=== PATIENT | female | born 2005 | race Two or more races ===

== ENCOUNTER 2024-08-05 22:53 | Emergency (ER) | payer MEDICAID, SELFPAY ==
[2024-08-05 22:54] VITALS: BMI 36.6
[2024-08-05 23:10] VITALS: BP 116/76; PULSE 75; RESP 18; TEMP 36.6; O2SAT 95
--- NOTE | 2024-08-05 23:25 | XR_ITS ---
Examination: Pelvic ultrasound, transabdominal, complete Technique: Transabdominal ultrasound of the pelvis performed using grayscale imaging Date and time of exam: August 06, 2024 0027 hrs. 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
--- NOTE | 2024-08-05 23:26 | PD.EDRME ---
Rapid Medical Screening Exam RME Arrival date/time: 08/05/24 22:53 19-year-old female past medical history of right oophorectomy presents emergency department complaining of right lower quadrant abdominal pain and dysuria for 2 days. Chief Complaint: Urogenital-Female Time Seen by Provider: 08/05/24 23:15 Vital signs: Vital Signs Temperature 98 F 08/05/24 23:10 Pulse Rate 75 08/05/24 23:10 Respiratory Rate 18 08/05/24 23:10 Blood Pressure 116/76 08/05/24 23:10 Pulse Oximetry (%) 95 08/05/24 23:10 Oxygen Delivery Method Room Air 08/05/24 23:10 Vital signs reviewed by provider: Yes
[2024-08-06] LABS: Collection Type, Urine Clean Catch
[2024-08-06 00:07] LABS: Bilirubin,Urine Negative (Negative); Blood,Urine Negative (Negative); Clarity,Urine Clear (Clear/Hazy); Color,Urine Yellow (Lt Yel-Yel); Culture Indicated,Urine Not Indicated; Glucose, Urine Negative (Negative); Ketones,Urine Negative (Negative); Leukocyte Esterase,Urine Negative (Negative); Nitrite,Urine Negative (Negative); Protein,Urine Negative (Neg - Trace); RBC,Urine < 1 /hpf (0-3); Specific Gravity,Urine 1.023 (1.001-1.035); Squamous Epithelial Cell,Urine 2 /hpf (0-5); Urobilinogen,Urine Negative mg/dL (0.0-1.0); WBC,Urine < 1 /hpf (0-5)
[2024-08-06 00:28] LABS: Basophils % (Auto) 0 % (0-2.5); Eosinophils # (Auto) 0.1 Thou/mm3 (0.0-0.5); Eosinophils % (Auto) 1 % (0-10); Hematocrit 36.4 % (36.0-46.0); Hemoglobin 11.6 g/dL (12.0-16.0); Immature Granulocytes % (Auto) 0 % (0-0); Immature Granulocytes Auto 0.03 Thou/mm3 (0.00-0.00); Lymphocytes # (Auto) 4.7 Thou/mm3 (1.0-4.8); Lymphocytes % (Auto) 41 % (10-50); Mean Corpuscular HGB Conc 31.9 g/dl (31.0-37.0); Mean Corpuscular Hemoglobin 25.6 pg (25.0-35.0); Mean Corpuscular Volume 80 fL (80-100); Monocytes # (Auto) 0.7 Thou/mm3 (0.0-0.8); Monocytes % (Auto) 6 % (0-12); Neutrophils % (Auto) 51 % (37-80); Nucleated Red Blood Cell % 0 /100 WBC (0); Platelet Count 258 Thou/mm3 (140-440); RDW Standard Deviation 42.5 fL (36.4-46.3); Red Blood Count 4.54 Miln/mm3 (4.00-5.20); White Blood Count 11.6 Thou/mm3 (4.5-11.0)
[2024-08-06 01:08] LABS: Alanine Aminotransferase 11 U/L (10-49); Albumin, Serum 4.7 gm/dL (3.5-5.0); Albumin/Globulin Ratio 1.7 (1.2-2.2); Alkaline Phosphatase 84 U/L (46-116); Anion Gap 7 (7-16); Aspartate Amino Transferase 14 U/L (0-34); BUN/Creatinine Ratio 19 Ratio (12-20); Bilirubin,Total 0.3 mg/dL (0.3-1.2); Blood Urea Nitrogen 13 mg/dL (9-23); Carbon Dioxide 26.4 mMol/L (20.0-31.0); Chloride 105 mMol/L (98-107); Creatinine (Component) 0.7 mg/dL (0.6-1.3); Globulin 2.8 gm/dL (2.3-3.5); Glucose 90 mg/dL (74-106); Lipase 28 U/L (12-53); Osmolality,Calculated 275 (275-295); Potassium 4.2 mMol/L (3.4-5.1); Sodium 138 mMol/L (136-145); Total Protein 7.5 gm/dL (5.7-8.2); eGFR > 60 See Note
[2024-08-06 01:29] LABS: HCG,Qualitative Serum Negative
--- NOTE | 2024-08-06 02:13 | PRELIM_ITS ---
Pelvic ultrasound (transabdominal) with doppler and wave doppler spectral analysis. August 06, 2024 at 0027 hours Clinical history: Right pelvic pain. Technique: Real-time, grayscale, transabdominal pelvic ultrasound was performed using Duplex scanning including arterial inflow, venous outflow, color and spectral Doppler. Comparison: None available at the time of this report. Findings: The uterus is normal in size measuring 8.3 x 4.1 x 6.1 cm. The endometrium is unremarkable and measures 1.1 cm. The right ovary measures 3.3 x 2.4 x 2.3 cm and is unremarkable. The left ovary measures 3.5 x 2.2 x 2.7 cm and is unremarkable. Both ovaries demonstrate color flow and spectral waveforms on Doppler evaluation. There is no adnexal mass. There is a small amount of free fluid on the submitted images. Impression: Small amount of free fluid in the pelvis, probably functional. No evidence of ovarian torsion. Report Electronically Signed By: Walt Lewis 08/06/2024 2:13:14 AM [EST]
--- NOTE | 2024-08-06 02:26 | PD.EDABDPN ---
ED Abdominal Pain RME/HPI General Chief Complaint: Urogenital-Female Stated complaint: RLQ PAIN, DYSURIA Time seen by provider: 08/05/24 23:15 Arrival date/time: 08/05/24 22:53 19-year-old female past medical history of right oophorectomy presents emergency department complaining of right lower quadrant abdominal pain and dysuria for 2 days. Patient reports pain is right pelvic pain that radiates down towards the pelvis. Patient denies any fever, chills, poor appetite, vomiting, or any other associated symptom. Source: patient Mode of arrival: ambulatory Limitations: no limitations RME / HPI RME / HPI narrative: 08/05/24 22:53 19-year-old female past medical history of right oophorectomy presents emergency department complaining of right lower quadrant abdominal pain and dysuria for 2 days. Related Data Home Medications ?Medication ?Instructions ?Recorded ?Confirmed vit no.95-ferrous 1 tab PO DAILY 04/21/23 08/16/23 fumarate 28 mg-folic acid 800 mcg tablet () Previous Rx's ?Medication ?Instructions ?Recorded ibuprofen 800 mg tablet 800 mg PO TID PRN pain #30 tabs 12/28/23 loperamide 2 mg capsule (Imodium 2 mg PO Q6H PRN loose stool #14 12/28/23 A-D) caps ondansetron 4 mg disintegrating 4 mg PO Q8H PRN nausea and 12/28/23 tablet vomiting #10 tabs ibuprofen 800 mg tablet 800 mg PO TID PRN pain #30 tabs 03/18/24 ibuprofen 600 mg tablet 600 mg PO Q8H PRN pain #20 tabs 08/06/24 Allergies Allergy/AdvReac Type Severity Reaction Status Date / Time orange Allergy Severe Swelling Verified 08/05/24 22:56 of Lip/Tongue/Throat Review of Systems Review of Systems Systems Reviewed: All systems reviewed, normal except as documented Constitutional Constitutional: Reports system reviewed and no additional complaints, except as documented, Denies body ache(s), Denies chills and Denies fever(s) Eyes Eyes: Reports system reviewed and no additional complaints, except as documented and Denies change in vision ENT Ears, Nose, Mouth, and Throat: Reports system reviewed and no additional complaints, except as documented, Denies disequilibrium, Denies dizziness, Denies sore throat and Denies vertigo Cardiovascular Cardiovascular: Reports system reviewed and no additional complaints, except as documented, Denies chest pain and Denies dyspnea Respiratory Respiratory: Reports system reviewed and no additional complaints, except as documented, Denies chest congestion, Denies cough and Denies dyspnea Gastrointestinal Gastrointestinal: Reports system reviewed and no additional complaints, except as documented, Reports abdominal pain, Denies nausea and Denies vomiting Genitourinary Genitourinary: Reports pelvic pain and Reports other (Dysuria) Musculoskeletal Musculoskeletal: Reports system reviewed and no additional complaints, except as documented, Denies abnormal gait and Denies arthralgias Integumentary/Breasts Skin/Breast: Reports system reviewed and no additional complaints, except as documented, Denies erythema, Denies rash and Denies wounds Neurologic Neurologic: Reports system reviewed and no additional complaints, except as documented, Denies abnormal gait, Denies disequilibrium, Denies dizziness and Denies vertigo Past Medical History Past Medical History NEUROLOGIC: Negative Neurological Disorders, Seizures or Head Trauma CARDIAC: Negative Cardiac Disorders or Congestive Heart Failure RESPIRATORY: Negative Chronic Obstructive Pulmonary Disease (COPD) or Asthma GASTROINTESTINAL: Negative Gastrointestinal Disorders GENITOURINARY: Negative Genitourinary Disorders or Renal Disease REPRODUCTIVE: Negative Genital Herpes, Gonorrhea, Pelvic Inflammatory Disease or Syphilis MUSCULOSKELETAL: Negative Musculoskeletal Disorders ENT: Negative Head Trauma ENDOCRINE: Negative Endocrine Disorders, Diabetes Mellitus Type 1 or Diabetes Mellitus Type 2 HEMATOLOGIC: Negative Blood Disorders or Sickle Cell Disease PSYCHO/SOCIAL: Negative Recreational Drug Use, Depression or Anxiety OTHER HISTORY: Negative Hospitalization, Autoimmune Disease, Falls, Blood Transfusions, Blood Transfusion Reaction, Anesthesia Reactions (NA), MRSA, Chicken Pox or Cancer Family History FAMILY HISTORY: Positive Family Surgery; Negative Family Psychiatric Problems, Family Respiratory Disorders, Family Cardiac Disorders, Family Gastrointestinal Problems, Family Cancer or Family Anesthesia Reaction Surgical History SURGICAL: Negative Abdominal Surgery, Joint Replacement, Mastectomy or Section Social History SMOKING STATUS: Never smoker SUBSTANCE USE: does not use ED Exam General Limitations: Present no limitations General appearance: Present alert and in no apparent distress Head Head exam: Present atraumatic Eye Eye exam: Present normal appearance, PERRL and EOMI ENT ENT exam: Present normal exam, normal oropharynx and mucous membranes moist Neck Neck exam: Present normal inspection, full ROM and trachea midline Chest Chest inspection: Present normal inspection and symmetric chest wall rise Respiratory Respiratory exam: Present normal lung sounds bilaterally Cardiovascular Cardiovascular exam: Present regular rate, normal rhythm and normal heart sounds Abdominal Exam Abdominal exam: Present soft and normal bowel sounds; Absent distention, tenderness, guarding, Bolton's sign or tenderness at McBurney's Point Extremities Exam Extremities exam: Present normal inspection and full ROM Back Exam Back exam: Present normal inspection and full ROM Neurological Exam Neurological exam: Present alert, oriented X3 and CN II-XII intact Psychiatric Psychiatric exam: Present normal affect and normal mood Skin Skin exam: Present warm, dry, intact and normal color Course Quality Measures none Orders Category Date Time Status US pelvic complete Stat Exams 08/05/24 23:25 Taken CBC Stat Lab 08/05/24 23:25 Completed CMP [Comprehensive Metabolic Panel] Stat Lab 08/05/24 23:25 Completed CRP [C-Reactive Protein] Stat Lab 08/05/24 23:25 Completed HCG,Qualitative Serum Stat Lab 08/05/24 23:25 Completed Lipase Stat Lab 08/05/24 23:25 Completed Urinalysis, C/S if Indicated Stat Lab 08/05/24 23:49 Completed Ketorolac Inj [Toradol Inj] Med 08/06/24 01:54 Discontinued 30 mg IM X1 ONE Vital Signs Vital signs: Vital Signs Temperature 98 F 08/05/24 23:10 Pulse Rate 75 08/05/24 23:10 Respiratory Rate 18 08/05/24 23:10 Blood Pressure 116/76 08/05/24 23:10 Pulse Oximetry (%) 95 08/05/24 23:10 Oxygen Delivery Method Room Air 08/05/24 23:10 95% room air within normal limits Abdominal Pain MDM MDM Narrative MDM Narrative:: 19-year-old female past medical history of right oophorectomy presents emergency department complaining of right lower quadrant abdominal pain and dysuria for 2 days. Patient reports pain is right pelvic pain that radiates down towards the pelvis. Patient denies any fever, chills, poor appetite, vomiting, or any other associated symptom. Abdomen soft with no tenderness at McBurney's point. CBC mild leukocytosis 11.6. CMP was unremarkable for any elevated LFTs. CRP mildly elevated 0.0. Urinalysis was unremarkable. Ultrasound pelvis was also unremarkable. Patient reports pain had subsided and improved. Patient stable for discharge. Patient gave strict return instructions to emergency department for any worsening right lower quadrant pain, fever, chills, vomiting, or as needed. Instructed to follow-up with primary care provider upon discharge. Patient data External records reviewed:: [facility] previous records Clinical information provided by:: patient Social determinants that could affect healthcare access:: none Patient has the following chronic illnesses:: None How is presenting disease/condition affected by chronic disease/condition?: no chronic disease Evaluation data The following diagnostics were reviewed and interpreted by me:: lab results and radiology exam(s) Lab and/or radiology exams considered but not ordered:: Ordered Interpretation Summary: Interpreted by me Medications / Prescriptions Medications or Prescriptions considered but not ordered:: Ordered Medication administrations:: Medication Administration History Discontinued Medications Ketorolac Tromethamine (Ketorolac Inj 60 Mg/2 Ml Vial) 30 mg IM X1 ONE Stop: 08/06/24 01:55 Last Admin: 08/06/24 02:21 Dose: Not Given Documented By: LORENZO Non-Admin Reason: Patient Refused Given Consultations Consultation(s) initiated? (list below): No Diagnosis Differential diagnosis abdominal pain: abdominal pain, acute appendicitis, calculus of kidney, constipation, diverticulitis, endometriosis, gastroenteritis, pancreatitis and small bowel obstruction Most likely diagnosis given after review of the tests above:: Abdominal pain Admission Indicated Admission indicated?: not indicated Admission Request Was there a request for admission?: No Disposition Plan Disposition Plan: Discharge Discharge Attestation Discharge Attestation: The patient and all family members were given an opportunity to ask questions and understood the discharge instructions. Discharge instructions specifically effects, indications for sooner follow up or return to the emergency department, and the expected course of current diagnosis. Patient condition: Stable Discharge Plan Plan Patient Disposition: HOME (Self Care) Disposition Comment: Stable Prescriptions/Referrals Prescriptions/Med Rec: New ibuprofen 600 mg tablet 600 mg PO Q8H PRN (Reason: pain) Qty: 20 0RF No Action PNV cmb#95-ferrous fumarate-FA [] 28 mg iron- 800 mcg tablet 1 tab PO DAILY Patient Comments: TAKE 1 TABLET BY MOUTH EVERY DAY FOR 90 DAYS loperamide [Imodium A-D] 2 mg capsule 2 mg PO Q6H PRN (Reason: loose stool) Qty: 14 0RF ibuprofen 800 mg tablet 800 mg PO TID PRN (Reason: pain) Qty: 30 0RF ondansetron 4 mg tablet,disintegrating 4 mg PO Q8H PRN (Reason: nausea and vomiting) Qty: 10 0RF ibuprofen 800 mg tablet 800 mg PO TID PRN (Reason: pain) Qty: 30 0RF Referrals: Minesh Dye MD [Primary Care Provider] - In 1 week Problem List Clinical Impression: Abdominal pain Patient/Caregiver Discharge Instructions Discharge Activity: activity as tolerated Education Materials: Abdominal Pain, ED Abdominal Pain Unkn Cause Fem Additional Instructions: Drink plenty of fluids and stay hydrated. Take Tylenol or ibuprofen as needed for pain. Follow-up with primary care provider in 2 to 3 days. Return immediately to emergency department for any worsening pain to right lower quadrant, or appetite, fever, vomiting, worsening symptoms, or as needed. Print Language: Setswana Stand Alone Forms: Jeannine Award Info., Patient Portal Info Letter PA/ELECTRONIC GAME DEVELOPER Supervising Physician PA/ELECTRONIC GAME DEVELOPER Supervising Physician: Dr. Dao
== END 2024-08-06 02:49 | disposition home or self-care (01) ==
PROVIDERS: Emergency Provider Emergency Medicine; PCP Family Medicine
DX: R10.31 Right lower quadrant pain (principal); R10.2 Pelvic and perineal pain; R30.0 Dysuria; D72.829 Elevated white blood cell count, unspecified
CPT/HCPCS: 36415; 76856; 80053; 81001; 83690; 84703; 85025; 86140; 99284

== ENCOUNTER 2024-09-09 21:00 | Emergency (ER) | payer MEDICAID, SELFPAY ==
[2024-09-09 21:01] VITALS: BMI 35.9
[2024-09-09 21:27] VITALS: BP 126/79; PULSE 120; RESP 18; TEMP 37.7; O2SAT 98
--- NOTE | 2024-09-09 21:48 | PD.EDURI ---
Upper Respiratory Inf. RME/HPI General Chief Complaint: Flu Like Symptoms Stated Complaint: FEVER,RUNNY NOSE Time Seen by Provider: 09/09/24 21:05 Source: patient, RN notes reviewed and old records reviewed Arrival date/time: 09/09/24 21:00 Mode of arrival: ambulatory Limitations: no limitations RME / HPI RME / HPI Narrative: 19yof presents to ED for 2-day history of fever, congestion and cough. Multiple family members currently have similar symptoms. Patient c/o headache, body aches, nausea and chest wall pain with cough. No shortness of breath, vomiting, dizziness or syncope reported. Tylenol taken at 1700 with mild relief. Related Data Home Medications ?Medication ?Instructions ?Recorded ?Confirmed vit no.95-ferrous 1 tab PO DAILY 04/21/23 08/16/23 fumarate 28 mg-folic acid 800 mcg tablet () Previous Rx's ?Medication ?Instructions ?Recorded ibuprofen 800 mg tablet 800 mg PO TID PRN pain #30 tabs 12/28/23 loperamide 2 mg capsule (Imodium 2 mg PO Q6H PRN loose stool #14 12/28/23 A-D) caps ondansetron 4 mg disintegrating 4 mg PO Q8H PRN nausea and 12/28/23 tablet vomiting #10 tabs ibuprofen 800 mg tablet 800 mg PO TID PRN pain #30 tabs 03/18/24 ibuprofen 600 mg tablet 600 mg PO Q8H PRN pain #20 tabs 08/06/24 dextromethorphan-guaifenesin ER 60 1 tab PO Q12H PRN congestion/cough 09/09/24 mg-1,200 mg tab,extend #20 tabs release,12hr (Mucinex DM) ibuprofen 600 mg tablet 600 mg PO Q6H PRN fever or pain 09/09/24 #30 tabs ondansetron 4 mg disintegrating 4 mg PO Q6H PRN nausea and 09/09/24 tablet vomiting #10 tabs Allergies Allergy/AdvReac Type Severity Reaction Status Date / Time orange Allergy Severe Swelling Verified 08/05/24 22:56 of Lip/Tongue/Throat Review of Systems Review of Systems Systems Reviewed: All systems reviewed, normal except as documented Constitutional Constitutional: Reports body ache(s), Reports chills, Reports fever(s) and Reports headache(s) ENT Ears, Nose, Mouth, and Throat: Denies dizziness, Reports headache(s) and Reports nasal congestion Cardiovascular Cardiovascular: Denies dyspnea and Denies syncope Comments: Reports chest wall pain with cough Respiratory Respiratory: Reports cough and Denies dyspnea Gastrointestinal Gastrointestinal: Denies abdominal pain, Reports nausea and Denies vomiting Musculoskeletal Musculoskeletal: Reports myalgias Neurologic Neurologic: Denies dizziness, Reports headache(s) and Denies syncope Past Medical History Past Medical History GASTROINTESTINAL: Positive Obesity Surgical History OTHER SURGICAL HX: ovarian cystectomy Social History SMOKING STATUS: Never smoker SUBSTANCE USE: does not use ALCOHOL: Never ED Exam General Limitations: Present no limitations General appearance: Present alert and in no apparent distress Head Head exam: Present atraumatic and normocephalic Eye Eye exam: Present normal appearance, PERRL and EOMI ENT ENT exam: Present normal oropharynx, mucous membranes moist, TM's normal bilaterally and other (Mild UAC) Neck Neck exam: Present normal inspection and full ROM; Absent tenderness or meningismus Chest Chest inspection: Present symmetric chest wall rise and tenderness (Reproducible chest wall TTP) Respiratory Respiratory exam: Present normal lung sounds bilaterally and other (No wheezing, rales or rhonchi); Absent respiratory distress Cardiovascular Cardiovascular exam: Present normal rhythm and tachycardia Extremities Exam Extremities exam: Present normal inspection and full ROM Neurological Exam Neurological exam: Present alert and oriented X3 Psychiatric Psychiatric exam: Present normal affect and normal mood Skin Skin exam: Present warm, dry, intact and normal color Course Quality Measures none Orders Category Date Time Status Bedside COVID-19 Antigen Test NOW Care 09/09/24 21:47 Completed Bedside Influenza A&B Antigen Test NOW Care 09/09/24 21:48 Completed CXR2 [XR chest 2V] Stat Exams 09/09/24 23:04 Completed Ibuprofen Tab [Motrin Tab] Med 09/09/24 21:47 Discontinued 600 mg PO X1 ONE Ondansetron Odt [Zofran Odt] Med 09/09/24 21:47 Discontinued 4 mg PO X1 ONE Vital Signs Vital signs: Vital Signs Temperature 99.9 F 09/09/24 21:27 Pulse Rate 120 H 09/09/24 21:27 Respiratory Rate 18 09/09/24 21:27 Blood Pressure 126/79 09/09/24 21:27 Pulse Oximetry (%) 98 09/09/24 21:27 Oxygen Delivery Method Room Air 09/09/24 21:27 Upper Respiratory Infection MDM Narrative MDM Narrative:: 19yof presents to ED for 2-day history of fever, congestion and cough. Multiple family members currently have similar symptoms. Patient c/o headache, body aches, nausea and chest wall pain with cough. No shortness of breath, vomiting, dizziness or syncope reported. Tylenol taken at 1700 with mild relief. Patient is well-appearing, afebrile, vitals are stable. No evidence of respiratory distress or hypoxia. Suspect viral etiology of symptoms. Encouraged rest, fluids, symptomatic treatment, fever mgmt prn. Stable for dc, RTED precautions given. Patient data External records reviewed:: [facility] previous records (08/06/2024 ED visit for abdominal pain) Clinical information provided by:: patient Social determinants that could affect healthcare access:: other (specify) (Poor access to healthcare) Patient has the following chronic illnesses:: Obesity How is presenting disease/condition affected by chronic disease/condition?: exacerbated by Evaluation data The following diagnostics were reviewed and interpreted by me:: lab results Lab and/or radiology exams considered but not ordered:: none Interpretation Summary: Covid negative Flu negative CXR: no pneumonia per my read Medications / Prescriptions Medications or Prescriptions considered but not ordered:: No antibiotics or antivirals recommended at this time Medication administrations:: Medication Administration History Discontinued Medications Ibuprofen (Ibuprofen Tab 600 Mg Tablet) 600 mg PO X1 ONE Stop: 09/09/24 21:48 Last Admin: 09/09/24 22:33 Dose: 600 mg Documented By: ELDER Ondansetron HCl (Ondansetron Odt 4 Mg Tabrap) 4 mg PO X1 ONE; Protocol Stop: 09/09/24 21:48 Last Admin: 09/09/24 22:33 Dose: 4 mg Documented By: ELDER Above medications administered in ED Consultations Consultation(s) initiated? (list below): No Diagnosis Upper Respiratory Differential Diagnosis: other (URI, COVID, flu, viral illness, bronchitis, pneumonia) Most likely diagnosis given after review of the tests above:: URI Admission Indicated Admission indicated?: not indicated Admission Request Was there a request for admission?: No Disposition Plan Disposition Plan: Discharge Discharge Attestation Discharge Attestation: The patient and all family members were given an opportunity to ask questions and understood the discharge instructions. Discharge instructions specifically effects, indications for sooner follow up or return to the emergency department, and the expected course of current diagnosis. Patient condition: Stable Discharge Plan Plan Patient Disposition: HOME (Self Care) Patient condition on transfer: Stable Prescriptions/Referrals Prescriptions/Med Rec: New ibuprofen 600 mg tablet 600 mg PO Q6H PRN (Reason: fever or pain) Qty: 30 0RF ondansetron 4 mg tablet,disintegrating 4 mg PO Q6H PRN (Reason: nausea and vomiting) Qty: 10 0RF dextromethorphan-guaifenesin [Mucinex DM] 60-1,200 mg tablet extended release 12 hr 1 tab PO Q12H PRN (Reason: congestion/cough) Qty: 20 0RF No Action ibuprofen 600 mg tablet 600 mg PO Q8H PRN (Reason: pain) Qty: 20 0RF PNV cmb#95-ferrous fumarate-FA [] 28 mg iron- 800 mcg tablet 1 tab PO DAILY Patient Comments: TAKE 1 TABLET BY MOUTH EVERY DAY FOR 90 DAYS loperamide [Imodium A-D] 2 mg capsule 2 mg PO Q6H PRN (Reason: loose stool) Qty: 14 0RF ibuprofen 800 mg tablet 800 mg PO TID PRN (Reason: pain) Qty: 30 0RF ondansetron 4 mg tablet,disintegrating 4 mg PO Q8H PRN (Reason: nausea and vomiting) Qty: 10 0RF ibuprofen 800 mg tablet 800 mg PO TID PRN (Reason: pain) Qty: 30 0RF Referrals: No Primary/Family,Physician [Primary Care Provider] - In 1 week Problem List Clinical Impression: URI (upper respiratory infection), Viral illness, Cough Patient/Caregiver Discharge Instructions Education Materials: ED URI, Viral, No Abx (Adult) Print Language: Singaporean Stand Alone Forms: Jeannine Award Info., Work/School Release, Patient Portal Info Letter PA/VOLUNTEER SERVICES DIRECTOR Supervising Physician PA/VOLUNTEER SERVICES DIRECTOR Supervising Physician: Cathie
[2024-09-09] MEDS: ONDANSETRON ODT 4 MG TABRAP PO (22:33)
[2024-09-09] MEDS: IBUPROFEN TAB 600 MG TABLET PO (22:33)
--- NOTE | 2024-09-09 23:04 | XR_ITS ---
Examination: PA lateral chest 2 views TECHNIQUE: Upright PA and lateral chest 2 views Exam date and time: September 09, 2024 1006 hours INDICATIONS: Coughing fever beginning 2 days ago. FINDINGS: Normal heart size. Lungs are clear. The osseous structures are intact. IMPRESSION: No active disease
[2024-09-09 23:35] VITALS: BP 121/82; PULSE 95; RESP 20; TEMP 37.1; O2SAT 98
[2024-09-09 23:39] VITALS: RESP 18
== END 2024-09-09 23:39 | disposition home or self-care (01) ==
PROVIDERS: Emergency Provider Emergency Medicine
DX: J06.9 Acute upper respiratory infection, unspecified (principal)
CPT/HCPCS: 71046; 87400; 87811; 99283; Q0162; A9270

== ENCOUNTER 2024-12-07 14:39 | Emergency (ER) | payer MEDICAID, SELFPAY ==
[2024-12-07 15:17] VITALS: BP 116/75; PULSE 86; RESP 16; TEMP 36.7; O2SAT 99; BMI 35.9
[2024-12-07 15:29] LABS: Collection Type, Urine Clean Catch
--- NOTE | 2024-12-07 15:32 | EDNOTE_ITS ---
ED Female Urogenital RME/HPI General Chief complaint: Urogenital-Female Stated complaint: Painful urination X 2 days, right lower back Time Seen by Provider: 12/07/24 15:08 Arrival date/time: 12/07/24 14:39 This is a 19-year-old female that comes in with complaints of pain with urination for the past few days. Patient also complains of some lower back pain. Patient denies any past medical history. Patient states that she just finished her cycle. Patient patient denies fever chills nausea vomiting diarrhe a Related Data Home Medications ?Medication ?Instructions ?Recorded ?Confirmed vit no.95-ferrous 1 tab PO DAILY 04/21/23 fumarate 28 mg-folic acid 800 mcg tablet () Previous Rx's ?Medication ?Instructions ?Recorded ibuprofen 800 mg tablet 800 mg PO TID PRN pain #30 t abs 12/28/23 loperamide 2 mg capsule (Imodium 2 mg PO Q6H PRN loose stool #14 12/28/23 A-D) caps ondansetron 4 mg disintegrating 4 mg PO Q8H PRN nausea and 12/28/23 tablet vomiting #10 tabs ibuprofen 800 mg tablet 800 mg PO TID PRN pain #30 t abs 03/18/24 ibuprofen 600 mg tablet 600 mg PO Q8H PRN pain #20 t abs 08/06/24 dextromethorphan-guaifenesin ER 60 1 tab PO Q12H PRN c ongestion/cough 09/09/24 mg-1,200 mg tab,extend #20 tabs release,12hr (Mucinex DM) ibuprofen 600 mg tablet 600 mg PO Q6H PRN fever or p ain 09/09/24 #30 tabs ondansetron 4 mg disintegrating 4 mg PO Q6H PRN nausea and 09/09/24 tablet vomiting #10 tabs ibuprofen 800 mg tablet 800 mg PO Q6H PRN pain #10 t abs 12/07/24 Allergies Allergy/AdvReac Type Severity Reaction Status Date / Time orange Allergy Severe Swelling Verified 12/07/24 14:44 of Lip/Tongue/Throat Review of Systems Review of Systems Systems Reviewed: All systems reviewed, normal except as documented Past Medical History Past Medical History GASTROINTESTINAL: Positive Obesity Surgical History OTHER SURGICAL HX: ovarian cystectomy Social History SMOKING STATUS: Never smoker SUBSTANCE USE: does not use ALCOHOL: Never ED Exam Narrative Physical exam: VITAL SIGNS: Reviewed. GENERAL APPEARANCE: Alert and interactive, follows commands, no acute distress HEAD AND FACE: Non-traumatic. ENT: PERRL, conjuctiva pink and clear, eyelid no trauma, Mucous membrane moist. NECK: Supple, nontender, no nuchal rigidity. CHEST: No tenderness, no crepitus, no paradoxical movement, no retractions. LUNGS: breathing even and unlabored HEART: Regular rate, cap refill less than 2 seconds ABDOMEN: Soft, nondistended, no guarding, nontender, no cva tenderness NEUROLOGICAL: Gross motor function intact sensory function intact, Appropriate for age. MUSCULOSKELETAL: low back nontender, full range of motion. EXTREMITIES: No redness no swelling no skin breakdown on bilateral foot and leg. Distal neurovascular status intact bilateral foot SKIN: Color pink, dry, no rash, no lacerations, no abrasions, no contusions. Course Quality Measures none Orders Category Date Time Status Urinalysis, C/S if Indicated Stat Lab 12/07/24 15:18 Completed Urine Culture Stat Lab 12/07/24 15:18 Completed Ibuprofen Tab [Motrin Tab] Med 12/07/24 16:59 Discontinued 800 mg PO X1 ONE cefTRIAXone [Rocephin] 1,000 mg Med 12/07/24 16:59 Discontinued Lidocaine 1% 20 ml [Xylocaine 1% 20 ML] 2.1 ml IM X1 Vital Signs Vital signs: Vital Signs Temperature 98.1 F 12/07/24 15:17 Pulse Rate 86 12/07/24 15:17 Respiratory Rate 16 12/07/24 15:17 Blood Pressure 116/75 12/07/24 15:17 Pulse Oximetry (%) 99 12/07/24 15:17 Oxygen Delivery Method Room Air 12/07/24 15:17 Urogenital - Female MDM Narrative MDM Narrative:: Patient positive for UTI. Will treat with Rocephin. Patient told to follow-up with primary provider in 1 to 2 days. Come back to the emergency room if symptoms change or worsen Patient data External records reviewed:: [facility] previous records Clinical information provided by:: patient Social determinants that could affect healthcare access:: none Patient has the following chronic illnesses:: none How is presenting disease/condition affected by chronic disease/condition?: no chronic disease Evaluation data The following diagnostics were reviewed and interpreted by me:: lab results Lab and/or radiology exams considered but not ordered:: none Interpretation Summary: see note Medications / Prescriptions Medications or Prescriptions considered but not ordered:: none Medication administrations:: Medication Administration History Discontinued Medications Ceftriaxone Sodium 1,000 mg/ (Lidocaine HCl 2.1 ml) 0 mg IM X1 ONE Stop: 12/07/24 17:00 Last Admin: 12/07/24 17:17 Dose: 1,000 mg Documented By: LORENZO Comments: 2.1 ml Ibuprofen (Ibuprofen Tab 400 Mg Tablet) 800 mg PO X1 ONE Stop: 12/07/24 17:00 Last Admin: 12/07/24 17:16 Dose: 800 mg Documented By: LORENZO see mar Consultations Consultation(s) initiated? (list below): No Diagnosis Urogenital Female Differential Diagnosis: urinary tract infection, bacterial vaginosis and other (kidney stone ) Most likely diagnosis given after review of the tests above:: uti Admission Indicated Admission indicated?: not indicated Admission Request Was there a request for admission?: No Disposition Plan Disposition Plan: Discharge Discharge Attestation Discharge Attestation: The patient and all family members were given an opportunity to ask questions and understood the discharge instructions. Discharge instructions specifically effects, indications for sooner follow up or return to the emergency department, and the expected course of current diagnosis. Patient condition: Stable Discharge Plan Plan Patient Disposition: HOME (Self Care) Patient condition on transfer: Stable Prescriptions/Referrals Prescriptions/Med Rec: New ibuprofen 800 mg tablet 800 mg PO Q6H PRN (Reason: pain) Qty: 10 0RF No Action ibuprofen 600 mg tablet 600 mg PO Q8H PRN (Reason: pain) Qty: 20 0RF PNV cmb#95-ferrous fumarate-FA [] 28 mg iron- 800 mcg tablet 1 tab PO DAILY Patient Comments: TAKE 1 TABLET BY MOUTH EVERY DAY FOR 90 DAYS loperamide [Imodium A-D] 2 mg capsule 2 mg PO Q6H PRN (Reason: loose stool) Qty: 14 0RF ibuprofen 800 mg tablet 800 mg PO TID PRN (Reason: pain) Qty: 30 0RF ondansetron 4 mg tablet,disintegrating 4 mg PO Q8H PRN (Reason: nausea and vomiting) Qty: 10 0RF ibuprofen 800 mg tablet 800 mg PO TID PRN (Reason: pain) Qty: 30 0RF ibuprofen 600 mg tablet 600 mg PO Q6H PRN (Reason: fever or pain) Qty: 30 0RF ondansetron 4 mg tablet,disintegrating 4 mg PO Q6H PRN (Reason: nausea and vomiting) Qty: 10 0RF dextromethorphan-guaifenesin [Mucinex DM] 60-1,200 mg tablet extended release 12 hr 1 tab PO Q12H PRN (Reason: congestion/cough) Qty: 20 0RF Referrals: Minesh Dye MD [Primary Care Provider] - In 1 week Problem List Clinical Impression: UTI (urinary tract infection) Patient/Caregiver Discharge Instructions Discharge Activity: activity as tolerated Education Materials: ED CYSTITIS Female Adult Additional Instructions: Follow up with primary provider in 1-2 days. Come back to ED if symptoms change or worsen Print Language: Portuguese Stand Alone Forms: Jeannine Award Info., Patient Portal Info Letter PA/[employer] FIELD COORDINATOR Supervising Physician PA/[employer] FIELD COORDIN[employer] Supervising Physician: lenny
[2024-12-07 15:47] LABS: Bacteria,Urine 2+; Bilirubin,Urine 1+ (Negative); Blood,Urine Trace (Negative); Clarity,Urine Turbid (Clear/Hazy); Glucose, Urine Negative (Negative); Ketones,Urine Trace (Negative); Leukocyte Esterase,Urine Positive (Negative); Nitrite,Urine Positive (Negative); Protein,Urine Trace (Neg - Trace); RBC,Urine 11 /hpf (0-3); Specific Gravity,Urine 1.026 (1.001-1.035); Squamous Epithelial Cell,Urine 2 /hpf (0-5); WBC,Urine 57 /hpf (0-5)
[2024-12-07 15:49] LABS: Color,Urine Orange (Lt Yel-Yel); Culture Indicated,Urine Yes
[2024-12-07] MEDS: IBUPROFEN TAB 400 MG TABLET 800 MG PO (17:16)
[2024-12-07] MEDS: cefTRIAXone 1,000 MG, LIDOCAINE 1% 20 ML 2.1 ML IM (17:17)
== END 2024-12-07 17:29 | disposition home or self-care (01) ==
PROVIDERS: Nurse Practitioner Family; Emergency Provider Emergency Medicine; PCP Family Medicine
DX: N39.0 Urinary tract infection, site not specified (principal)
CPT/HCPCS: 81001; 87077; 87086; 87186; 96372; 99283; J0696; J3490; A9270

== ENCOUNTER 2025-05-25 09:39 | Emergency (ER) | payer MEDICAID, SELFPAY ==
[2025-05-25 09:46] VITALS: BP 114/76; PULSE 74; RESP 16; TEMP 36.9; O2SAT 98; BMI 33.1
--- NOTE | 2025-05-25 09:53 | XR_ITS ---
EXAMINATION: Upright PA chest single view TECHNIQUE: Upright PA chest single view Date and time: May 25, 2025, 10:11 a.m., comparison September 09, 2024 INDICATION: Shortness of breath, fever beginning 3 days ago. FINDINGS: Normal heart size Lungs are clear. Osseous structures are intact IMPRESSION: No active disease
--- NOTE | 2025-05-25 10:04 | EDNOTE_ITS ---
Upper Respiratory Inf. RME/HPI General Chief Complaint: Flu Like Symptoms Stated Complaint: CONGESTED W/ BAD COUGH X 3 DAYS Time Seen by Provider: 05/25/25 09:46 Source: patient Arrival date/time: 05/25/25 09:39 20-year-old female with no known medical history presents to the emergency room with a chief complaint of a cough and congestion x 3 days Mode of arrival: ambulatory Limitations: no limitations Related Data Home Medications ?Medication ?Instructions ?Recorded ?Confirmed vit no.95-ferrous 1 tab PO DAILY 04/21/23 fumarate 28 mg-folic acid 800 mcg tablet () Previous Rx's ?Medication ?Instructions ?Recorded ibuprofen 800 mg tablet 800 mg PO TID PRN pain #30 t abs 12/28/23 loperamide 2 mg capsule (Imodium 2 mg PO Q6H PRN loose stool #14 12/28/23 A-D) caps ondansetron 4 mg disintegrating 4 mg PO Q8H PRN nausea and 12/28/23 tablet vomiting #10 tabs ibuprofen 800 mg tablet 800 mg PO TID PRN pain #30 t abs 03/18/24 ibuprofen 600 mg tablet 600 mg PO Q8H PRN pain #20 t abs 08/06/24 dextromethorphan-guaifenesin ER 60 1 tab PO Q12H PRN c ongestion/cough 09/09/24 mg-1,200 mg tab,extend #20 tabs release,12hr (Mucinex DM) ibuprofen 600 mg tablet 600 mg PO Q6H PRN fever or p ain 09/09/24 #30 tabs ondansetron 4 mg disintegrating 4 mg PO Q6H PRN nausea and 09/09/24 tablet vomiting #10 tabs ibuprofen 800 mg tablet 800 mg PO Q6H PRN pain #10 t abs 12/07/24 Allergies Allergy/AdvReac Type Severity Reaction Status Date / Time orange Allergy Severe Swelling Verified 05/25/25 09:41 of Lip/Tongue/Throat Review of Systems Review of Systems Systems Reviewed: All systems reviewed, normal except as documented Constitutional Constitutional: Reports system reviewed and no additional complaints, except as documented, Denies fatigue, Denies fever(s), Denies headache(s) and Denies weakness Eyes Eyes: Reports system reviewed and no additional complaints, except as documented, Denies blurry vision and Denies change in vision ENT Ears, Nose, Mouth, and Throat: Reports system reviewed and no additional complaints, except as documented, Denies otalgia, Denies headache(s), Denies nasal congestion, Denies throat swelling and Denies vertigo Cardiovascular Cardiovascular: Reports system reviewed and no additional complaints, except as documented, Denies chest pain, Reports dyspnea and Denies dyspnea on exertion Respiratory Respiratory: Reports system reviewed and no additional complaints, except as documented, Reports chest congestion, Reports cough, Reports dyspnea, Denies dyspnea on exertion and Denies wheezing Gastrointestinal Gastrointestinal: Reports system reviewed and no additional complaints, except as documented, Denies abdominal pain, Denies cramping, Denies nausea and Denies vomiting Genitourinary Genitourinary: Reports system reviewed and no additional complaints, except as documented Musculoskeletal Musculoskeletal: Reports system reviewed and no additional complaints, except as documented and Denies back pain Integumentary/Breasts Skin/Breast: Reports system reviewed and no additional complaints, except as documented and Denies wounds Neurologic Neurologic: Reports system reviewed and no additional complaints, except as documented, Denies confusion, Denies headache(s), Denies lack of coordination, Denies vertigo and Denies weakness Psychiatric Psychiatric: Reports system reviewed and no additional complaints, except as documented, Denies anxiety, Denies confusion, Denies depression, Denies paranoia, Denies suicidal ideation and Denies tactile hallucinations Endocrine Endocrine: Reports system reviewed and no additional complaints, except as documented and Denies fatigue Hematologic/Lymphatic Hematologic/Lymphatic: Reports system reviewed and no additional complaints, except as documented and Denies lymphadenopathy Allergic/Immunologic Allergic/Immunologic: Reports system reviewed and no additional complaints, except as documented, Denies throat swelling, Denies urticaria and Denies wheezing Past Medical History Past Medical History NEUROLOGIC: Negative Neurological Disorders, Seizures or Head Trauma CARDIAC: Negative Cardiac Disorders or Congestive Heart Failure RESPIRATORY: Negative Chronic Obstructive Pulmonary Disease (COPD) or Asthma GASTROINTESTINAL: Positive Obesity; Negative Gastrointestinal Disorders GENITOURINARY: Negative Genitourinary Disorders or Renal Disease REPRODUCTIVE: Negative Genital Herpes, Gonorrhea, Pelvic Inflammatory Disease or Syphilis MUSCULOSKELETAL: Negative Musculoskeletal Disorders ENT: Negative Head Trauma ENDOCRINE: Negative Endocrine Disorders, Diabetes Mellitus Type 1 or Diabetes Mellitus Type 2 HEMATOLOGIC: Negative Blood Disorders or Sickle Cell Disease PSYCHO/SOCIAL: Negative Recreational Drug Use, Depression or Anxiety OTHER HISTORY: Negative Hospitalization, Autoimmune Disease, Falls, Blood Transfusions, Blood Transfusion Reaction, Anesthesia Reactions (NA), MRSA, Chicken Pox or Cancer Family History FAMILY HISTORY: Positive Family Surgery; Negative Family Psychiatric Problems, Family Respiratory Disorders, Family Cardiac Disorders, Family Gastrointestinal Problems, Family Cancer or Family Anesthesia Reaction Surgical History SURGICAL: Negative Abdominal Surgery, Joint Replacement, Mastectomy or Section Social History SMOKING STATUS: Never smoker SUBSTANCE USE: does not use ED Exam General Limitations: Present no limitations General appearance: Present alert and in no apparent distress Head Head exam: Present atraumatic Eye Eye exam: Present normal appearance, PERRL and EOMI ENT ENT exam: Present normal exam, normal oropharynx and mucous membranes moist Neck Neck exam: Present normal inspection, full ROM and trachea midline Chest Chest inspection: Present normal inspection and symmetric chest wall rise Respiratory Respiratory exam: Present normal lung sounds bilaterally; Absent respiratory distress, wheezes, stridor, accessory muscle use or prolonged expiratory phase Cardiovascular Cardiovascular exam: Present regular rate, normal rhythm, normal heart sounds, +S1 and +S2; Absent tachycardia Abdominal Exam Abdominal exam: Present soft and normal bowel sounds Extremities Exam Extremities exam: Present normal inspection and full ROM Back Exam Back exam: Present normal inspection and full ROM Neurological Exam Neurological exam: Present alert, oriented X3 and CN II-XII intact Psychiatric Psychiatric exam: Present normal affect and normal mood Skin Skin exam: Present warm, dry, intact and normal color Course Quality Measures none Orders Category Date Time Status XR chest 1V portable Stat Exams 05/25/25 09:53 Completed COVID-19 Antigen (In-House) Stat Lab 05/25/25 09:56 Completed Influenza A & B Rapid Panel Stat Lab 05/25/25 09:56 Completed Vital Signs Vital signs: Vital Signs Temperature 98.4 F 05/25/25 09:46 Pulse Rate 74 05/25/25 09:46 Respiratory Rate 16 05/25/25 09:46 Blood Pressure 114/76 05/25/25 09:46 Pulse Oximetry (%) 98 05/25/25 09:46 Oxygen Delivery Method Room Air 05/25/25 09:46 Upper Respiratory Infection MDM Narrative MDM Narrative:: 20-year-old female with no known medical history presents to the emergency room with a chief complaint of a cough and congestion x 3 days Patient is hemodynamically stable and in no apparent distress Physical examination shows clear bilateral lung sounds. There is no wheezing there is no pursed lip breathing O2 saturation is 98% she is afebrile not tachycardic not tachypneic X-ray is negative for any pneumonic infiltrates Patient was discharged and educated to follow-up with primary care provider in the next 24 to 48 hours and return to the emergency room for any evidence of worsening signs or symptoms Patient data External records reviewed:: [facility] previous records Clinical information provided by:: patient Social determinants that could affect healthcare access:: none Patient has the following chronic illnesses:: No chronic illness How is presenting disease/condition affected by chronic disease/condition?: no chronic disease Evaluation data The following diagnostics were reviewed and interpreted by me:: lab results and radiology exam(s) Lab and/or radiology exams considered but not ordered:: Labs and radiology exams considered and ordered Interpretation Summary: Chest f-ear-[id number]: Normal heart size Lungs are clear. Osseous structures are intact IMPRESSION: No active disease Medications / Prescriptions Medications or Prescriptions considered but not ordered:: No medication given Medication administrations:: No medication given Consultations Consultation(s) initiated? (list below): No Diagnosis Upper Respiratory Differential Diagnosis: upper respiratory infection, viral infection, bronchitis, influenza and other (Community-acquired pneumonia) Most likely diagnosis given after review of the tests above:: Upper respiratory infection Admission Indicated Admission indicated?: not indicated Admission Request Was there a request for admission?: No Disposition Plan Disposition Plan: Discharge Discharge Attestation Discharge Attestation: The patient and all family members were given an opportunity to ask questions and understood the discharge instructions. Discharge instructions specifically effects, indications for sooner follow up or return to the emergency department, and the expected course of current diagnosis. Patient condition: Stable Discharge Plan Plan Patient Disposition: HOME (Self Care) Discharge Disposition comment: Stable Prescriptions/Referrals Prescriptions/Med Rec: No Action ibuprofen 600 mg tablet 600 mg PO Q8H PRN (Reason: pain) Qty: 20 0RF ibuprofen 800 mg tablet 800 mg PO Q6H PRN (Reason: pain) Qty: 10 0RF PNV no.95-ferrous fumarate-FA [] 28 mg iron- 800 mcg tablet 1 tab PO DAILY Patient Comments: TAKE 1 TABLET BY MOUTH EVERY DAY FOR 90 DAYS loperamide [Imodium A-D] 2 mg capsule 2 mg PO Q6H PRN (Reason: loose stool) Qty: 14 0RF ibuprofen 800 mg tablet 800 mg PO TID PRN (Reason: pain) Qty: 30 0RF ondansetron 4 mg tablet,disintegrating 4 mg PO Q8H PRN (Reason: nausea and vomiting) Qty: 10 0RF ibuprofen 800 mg tablet 800 mg PO TID PRN (Reason: pain) Qty: 30 0RF ibuprofen 600 mg tablet 600 mg PO Q6H PRN (Reason: fever or pain) Qty: 30 0RF ondansetron 4 mg tablet,disintegrating 4 mg PO Q6H PRN (Reason: nausea and vomiting) Qty: 10 0RF dextromethorphan-guaifenesin [Mucinex DM] 60-1,200 mg tablet extended release 12 hr 1 tab PO Q12H PRN (Reason: congestion/cough) Qty: 20 0RF Referrals: Minesh Dye MD [Primary Care Provider, [facility]] - In 1 week Problem List Clinical Impression: Upper respiratory infection Patient/Caregiver Discharge Instructions Education Materials: ED URI, Viral, No Abx (Adult) Additional Instructions: Please follow-up with your primary care provider in the next 24 to 48 hours. You tested negative for influenza, COVID-19. Your chest x-ray was negative for pneumonia. Your most likely source is an upper viral respiratory infection. The treatment for this is symptom management. Please continue to take Tylenol a nd ibuprofen for fever management. Please increase your oral fluid intake. For any evidence of worsening signs or symptoms please return to the emergency room immediately Print Language: Macedonian Stand Alone Forms: Jeannine Award Info., Work/School Release, Patient Portal Info Letter CAROL/KARMA Supervising Physician PA/KARMA Supervising Physician: Dr. Brand
[2025-05-25 10:59] LABS: COVID-19 Antigen (In-House) Negative (Negative); Influenza A Ag Negative; Influenza B Ag Negative
== END 2025-05-25 13:18 | disposition home or self-care (01) ==
PROVIDERS: Nurse Practitioner Family; Emergency Provider Emergency Medicine; PCP Family Medicine
DX: J06.9 Acute upper respiratory infection, unspecified (principal)
CPT/HCPCS: 71045; 87502; 87811; 99282